=== PATIENT | female | born 1990 | race Caucasian/White ===

== ENCOUNTER 2023-02-14 09:36 | Emergency (ER) | payer SELFPAY ==
[~2023-02-14] VITALS: Ht 162.6 cm; Wt 65.0 kg
[2023-02-14 09:57] VITALS: O2SAT 100
[2023-02-14 11:03] LABS: BASOPHILS % 0.6 % (0.0-2.0); EOSINOPHILS % 2.2 % (0.0-5.0); HEMATOCRIT. 41.6 % (36.0-48.0); HEMOGLOBIN. 13.8 g/dL (12.0-16.0); LYMPHOCYTES % 36.9 % (20.0-50.0); MEAN CORPUSCULAR HEMOGLOBIN 29.8 pg (28.0-32.0); MEAN CORPUSCULAR HGB CONC 33.1 g/dL (31.0-37.0); MEAN PLATELET VOLUME 6.9 fl (7.4-10.4); MONOCYTES % 5.9 % (2.0-8.0); NEUTROPHILS % 54.4 % (40.0-76.0); PLATELET 390 x1000/uL (130-400); RED BLOOD CELL COUNT 4.62 mill/uL (4.2-5.4); WHITE BLOOD COUNT 9.2 x1000/uL (4.5-11.0)
[2023-02-14 11:08] LABS: CHLORIDE 107 mEq/L (98-107); INDEX HEMOLYSI 1 (1-3); INDEX ICTERIC 1 (1-4); INDEX LIPEMIC 1 (1-3); SODIUM 136 mEq/L (136-145)
[2023-02-14 11:17] LABS: CALCIUM 8.6 mg/dL (8.5-10.1); CARBON DIOXIDE 28 mEq/L (21-32); CREATININE 0.5 mg/dL (0.6-1.3); GLUCOSE 96 mg/dL (70-105); UREA NITROGEN BLOOD 9 mg/dL (7-21); URIC ACID 3.6 mg/dL (2.6-7.2)
[2023-02-14] MEDS ORDERED: NAPR-681 MT (11:33)
[2023-02-14] MEDS ORDERED: KETOROLAC 30MG/ML VIAL IM ONE (11:45)
[2023-02-14 12:09] VITALS: BP 112/64; PULSE 64; RESP 20; TEMP 98.7
== END 2023-02-14 12:10 | disposition home or self-care (01) ==
LOC: ER 09:51
DX: M20.11 Hallux valgus (acquired), right foot (principal)
CPT/HCPCS: 80048; 81025; 84550; 85025; 36415; 73630; 96372; 99284; J1885; Z7610